=== PATIENT | female | born 1985 | race Caucasian/White ===

== ENCOUNTER 2018-01-03 22:36 | Emergency (ER) | payer MEDICAID, OTHER ==
[~2018-01-03] VITALS: Ht 160 cm; Wt 56.1 kg
[~2018-01-03 22:36] MED LIST: OXYC-360 PO
[2018-01-03 22:53] VITALS: BP 125/60; PULSE 74; RESP 14; TEMP 98.3; O2SAT 98
[2018-01-03] MEDS ORDERED: AK-T0.3S RIGHT EYE (23:52)
[2018-01-03] MEDS ORDERED: BACT800T5 PO (23:52)
[2018-01-04] MEDS ORDERED: SULFAMETHOXAZOLE-TRIMETHOPRIM DS 800-160 MG TAB PO ONE
[2018-01-04] MEDS ORDERED: TOBRAMYCIN SULF 0.3% OPHT SOLN 5 ML BTL RIGHT EYE ONE
--- NOTE | 2018-01-04 00:19 | PD ---
HPI Chief Complaint: Skin Problem Time Seen by Provider: 23:50 Travel History International Travel<30 days: No Contact w/Intl Traveler<30days: No Traveled to known affect area: No History of Present Illness HPI The patient is a 32-year-old female that complains of an abscess on her right upper eyelid for 3 days. It has been draining slightly but she states it is painful and has not been draining reliable. The pain is a 6/10. It is dull pain. PFSH Past Medical History Medical History: Denies Significant Hx Cancer: No Cardiovascular Problems: No Diabetes: No Diminished Hearing: No Hepatitis: No Hiatal Hernia: No Hypertension: No Medical other: No Respiratory: No Thyroid Disease: No Tetanus Vaccination: Unknown Influenza Vaccination: No ?: Not LMP: 12/27/17 : 1 Para: 1 Tubal Ligation: Yes (2010) Past Surgical History Surgical History: No Previous Surgery Other Surgery: No Social History Alcohol Use: No Tobacco Use: No Substance Use: No Allergies-Medications (Allergen,Severity, Reaction): Coded Allergies: No Known Allergies (Verified Adverse Reaction, Unknown, 01/03/18) Reported Meds & Prescriptions Reported Meds & Active Scripts Active Bactrim DS (Sulfamethoxazole-Trimethoprim) 800-160 Mg Tab 1 Tab PO BID Tobramycin Opth Drops 0.3 % Soln 1 Drop RIGHT EYE Q4H Review of Systems Except as stated in HPI: all other systems reviewed are Neg Physical Exam Narrative GENERAL: Well-nourished, well-developed patient in slight apparent distress with her right eyelid discomfort. Her vital signs are normal.. SKIN: Focused skin assessment warm/dry. HEAD: Normocephalic. EYES: No scleral icterus. No injection or drainage. There is a hordeolum on the medial side of the right upper eyelid. It is draining a slight amount of pus but I cannot get it to drain more. The drainage apparently has stopped. NECK: Supple, trachea midline. No JVD or lymphadenopathy. CARDIOVASCULAR: Regular rate and rhythm without murmurs, gallops, or rubs. RESPIRATORY: Breath sounds equal bilaterally. No accessory muscle use. GASTROINTESTINAL: Abdomen soft, non-tender, nondistended. MUSCULOSKELETAL: No cyanosis, or edema. BACK: Nontender without obvious deformity. No CVA tenderness. Data Data Last Documented VS Vital Signs Date Time Temp Pulse Resp B/P (MAP) Pulse Ox O2 Delivery O2 Flow Rate FiO2 01/03/18 22:53 98.3 74 14 125/60 (81) 98 Orders Orders Tobramycin 0.3% Opth Soln (Tobrex 0.3% O (01/04/18 00:00) Sulfamet-Trimeth Ds 800-160 Mg (Bactrim (01/04/18 00:00) MDM Medical Decision Making Medical Screen Exam Complete: Yes Emergency Medical Condition: Yes Medical Record Reviewed: Yes Differential Diagnosis Hordeolum, infected canaliculus, foreign body Narrative Course There is no evidence of an infected calyculus or foreign body of the eye. This appears to be a hordeolum that needs draining. Procedures Procedure Narrative After using topical eyedrops several times she was able to tolerate a #11 blade opening up the hordeolum on the right eye. A fair amount of pus was recovered. Diagnosis Primary Impression: Hordeolum of right eye Additional Impression: Encounter for incision and drainage procedure Additional Instructions: As we discussed, you need to see an teacher preschool. Use warm compresses, continuously if you can on the right eye to help it drain. The antibiotic is 1 tablet twice daily in the eyedrops are every 4 hours into the right eye. Med/Other Pt SpecificInfo: Prescription(s) given Scripts Sulfamethoxazole-Trimethoprim (Bactrim DS) 800-160 Mg Tab 1 TAB PO BID for Infection, #20 TAB 0 Refills Prov: Yahir Ambriz MD 01/03/18 Tobramycin Opth Drops (Tobramycin Opth Drops) 0.3 % Soln 1 DROP RIGHT EYE Q4H for Infection, #1 BOTTLE 0 Refills Prov: Yahir Ambriz MD 01/03/18 Disposition: 01 DISCHARGE HOME Condition: Stable Yahir Ambriz MD Jan 04, 2018 00:19
[2018-01-04 01:18] VITALS: BP 119/78
== END 2018-01-04 01:20 | disposition home or self-care (01) ==
LOC: PHED 22:36
DX: H00.011 Hordeolum externum right upper eyelid (principal); B95.62 Methicillin resistant Staphylococcus aureus infection as the cause of diseases classified elsewhere; Z16.19 Resistance to other specified beta lactam antibiotics; Z16.11 Resistance to penicillins; Z16.23 Resistance to quinolones and fluoroquinolones
CPT/HCPCS: 67700; 86403; 87070; 87186